=== PATIENT | male | born 1985 | race Caucasian/White ===

== ENCOUNTER 2024-08-24 00:39 | Emergency (ER) | payer MEDICAID, OTHER ==
[~2024-08-24] VITALS: Ht 162.6 cm; Wt 56.7 kg
[2024-08-24] MEDS: TDAP [DIPH/PERTUSSIS/TET] 0.5 ML VIAL IM ONE (01:40)
[2024-08-24] MEDS: KETOROLAC TROMETHAMINE INJ 30 MG/ML VIAL IV ONE (01:40)
[2024-08-24 06:21] VITALS: BP 138/97; TEMP 98.5; O2SAT 99
== END 2024-08-24 06:21 | disposition home or self-care (01) ==
LOC: ER 00:43
DX: S42.92XA Fracture of left shoulder girdle, part unspecified, initial encounter for closed fracture (principal); S01.01XA Laceration without foreign body of scalp, initial encounter; R51.9 Headache, unspecified; W22.8XXA Striking against or struck by other objects, initial encounter; Y93.64 Activity, baseball; Y92.89 Other specified places as the place of occurrence of the external cause; Y99.8 Other external cause status
CPT/HCPCS: 70450-TC; 72125-TC; 73060-TC; 73090-TC; 73200-TC